=== PATIENT | male | born 1980 | race Caucasian/White ===

== ENCOUNTER 2018-01-06 12:56 | Emergency (ER) | payer BC ==
[~2018-01-06] VITALS: Ht 175.3 cm; Wt 68.6 kg
[2018-01-06 13:44] LABS: BASOPHIL (%) 0.9 % (0-1); BASOPHIL COUNT 0.1 K/uL (0-0.1); EOSINOPHIL (%) 1.9 % (0-5); EOSINOPHIL COUNT 0.2 K/uL (0-0.3); HEMATOCRIT 45.2 % (38.0-50.0); HEMOGLOBIN 15.2 G/DL (12.5-16.6); IMMATURE GRANULOCYTE (%) 0.4 % (0.0-0.7); LYMPHOCYTE (%) 28.7 % (15-42); LYMPHOCYTE COUNT 2.2 K/uL (1.0-2.8); MCHC 33.6 G/DL (30.0-36.0); MCV 92.1 FL (86-99); MONOCYTE (%) 8.1 % (3-12); MONOCYTE COUNT 0.6 K/uL (0-0.8); NEUTROPHIL COUNT 4.7 K/uL (1.8-6.4); PLATELET COUNT 343 K/uL (156-360); RBC DIS.WIDTH-CV 12.5 % (11.8-14.6); RBC DIS.WIDTH-SD 42.5 % (39-53); RED BLOOD COUNT 4.91 M/uL (4.00-5.50); WHITE BLOOD COUNT 7.8 K/uL (4.1-10.2)
[2018-01-06 13:50] LABS: INTER. NORMALIZED RATIO 1.1
[2018-01-06 13:52] LABS: ALBUMIN 4.3 g/dL (3.2-4.8)
[2018-01-06 13:53] LABS: CHLORIDE 107 mEq/L (99-109); POTASSIUM 4.4 mEq/L (3.7-5.4); PTT 31.6 SEC (25-37); SODIUM 140 mEq/L (136-147)
[2018-01-06 13:55] LABS: GLUCOSE 100 mg/dL (70-99); TOTAL PROTEIN 7.1 g/dL (6.4-8.3)
[2018-01-06 13:57] LABS: TOTAL BILIRUBIN 0.8 mg/dL (0.0-1.0)
[2018-01-06 13:58] LABS: ALKALINE PHOSPHATASE 56 IU/L (3-129)
[2018-01-06 13:59] LABS: CREATININE 1.1 mg/dL (0.6-1.3); GFR ESTIMATE (CALCULATED) > 59 mL/min/ (58.99-99999)
[2018-01-06 14:00] LABS: AST (GOT) 16 IU/L (2-34); UREA NITROGEN (BUN) 12 mg/dL (9-23)
[2018-01-06 14:02] LABS: ALT (GPT) 18 IU/L (3-49)
[2018-01-06 14:16] VITALS: BP 112/76
[2018-01-08 12:08] LABS: STOOL OCCULT BLD 1ST SPECIMEN POSITIVE
== END 2018-01-06 14:18 | disposition home or self-care (01) ==
LOC: EME 12:56
PROVIDERS: Nurse Practitioner Family
DX: K92.1 Melena (principal); Z98.890 Other specified postprocedural states; K21.9 Gastro-esophageal reflux disease without esophagitis; F17.200 Nicotine dependence, unspecified, uncomplicated
CPT/HCPCS: 80053; 82272; 83605; 85025; 85610; 85730; 86850; 86900; 86901; 99281; 99284